=== PATIENT | male | born 1940 | race Caucasian/White ===

== ENCOUNTER 2017-09-20 11:59 | Inpatient (IN) | payer OTHER ==
[~2017-09-20] VITALS: Ht 157.5 cm; Wt 65.7 kg
[~2017-09-20 11:59] MED LIST: CEPH500 PO; EPIN.3I IM; LISI10; LISI20 PO; METPRE4DP PO; OXYACE5T PO; PRAV20 PO
[2017-09-20 12:26] LABS: BASOPHILS ABSOLUTE AUTO 0.03 K/mm3 (0.00-0.23); BASOPHILS PERCENT AUTO 0 % (0-2); EOSINOPHILS ABSOLUTE AUTO 0.12 K/mm3 (0.00-0.68); EOSINOPHILS PERCENT AUTO 2 % (0-6); Hemoglobin 12.7 g/dL (13.5-17.5); IMMATURE GRAN ABSOLUTE AUTO 0.03 K/mm3 (0.00-0.10); IMMATURE GRAN PERCENT AUTO 0 % (0-1); LYMPHOCYTES ABSOLUTE AUTO 2.32 K/mm3 (0.84-5.20); LYMPHOCYTES PERCENT AUTO 29 % (21-46); MONOCYTES ABSOLUTE AUTO 0.66 K/mm3 (0.16-1.47); MONOCYTES PERCENT AUTO 8 % (4-13); Mean Corpuscular HGB 30.8 pg (26.0-34.0); Mean Corpuscular HGB Conc 32.6 g/dL (31.5-36.5); Mean Corpuscular Volume 95 fL (80-100); Mean Platelet Volume 9.1 fL (9.1-12.4); NEUTROPHILS ABSOLUTE AUTO 4.95 K/mm3 (1.96-9.15); NEUTROPHILS PERCENT AUTO 61 % (41-73); Platelet Count 193 K/mm3 (150-400); RDW Coefficient Variation 12.3 % (11.7-14.2); RDW Standard Deviation 42.9 fL (35.1-46.3); Red Blood Cell Count 4.12 M/mm3 (4.30-5.90); White Blood Cell Count 8.11 K/mm3 (4.00-11.30)
[2017-09-20] MEDS ORDERED: Red Yeast Rice600 MG PO (12:30)
[2017-09-20] MEDS ORDERED: ASPI81CH PO (12:30)
[2017-09-20 12:47] LABS: Alanine Aminotransfer (ALT/SGP 27 U/L (12-78); Albumin, Blood 3.5 g/dL (3.4-5.0); Albumin/Globulin Ratio 1.1 (0.8-1.8); Alk Phos 88 U/L (50-136); Anion Gap 6 mmol/L (6-16); Aspartate Aminotrans (AST/SGOT 31 U/L (12-37); Bilirubin, Total 0.4 mg/dL (0.1-1.0); Blood Urea Nitrogen 23 mg/dL (8-24); Bun/Creatinine Ratio 22.1 (12.0-20.0); CO2, Blood 27 mmol/L (21-32); Calcium, Blood 8.4 mg/dL (8.5-10.1); Chloride, Blood 108 mmol/L (98-108); Creatinine, Blood 1.04 mg/dL (0.60-1.20); Globulin, Blood 3.3 g/dL (2.2-4.0); Glomerular Filtration Rate >60 (60-); Glucose, Blood 91 mg/dL (70-99); Sodium, Blood 141 mmol/L (136-145); Total Protein, Blood 6.8 g/dL (6.4-8.2)
[2017-09-20 12:58] LABS: Prothrombin Time Results 10.4 Sec (9.7-11.5)
[2017-09-20] MEDS ORDERED: FLAX PO (15:54)
[2017-09-20] MEDS ORDERED: Co Q-10100 MG PO (15:54)
[2017-09-20] MEDS ORDERED: Men's Multi-Vi1 EACH PO (15:56)
[2017-09-21 06:36] LABS: CHOL/HDL RATIO 2.7; Cholesterol 142 mg/dL (50-200); HDL Cholesterol 53 mg/dL (>39); LDL/HDL RATIO 1.5; Low Density Lipoprotein Chol 79 mg/dL (0-110); Triglycerides 51 mg/dL (30-160); Very Low Density Lipoprot Chol 10 mg/dL (6-32)
[2017-09-22] MEDS ORDERED: CLOP75 PO (12:11)
[2017-09-22] MEDS ORDERED: Isosorbide Mono30 MG PO (12:14)
[2017-09-22] MEDS ORDERED: NITR.4SL SL (12:18)
[2017-09-22] MEDS ORDERED: PRAV20 PO (12:19)
== END 2017-09-22 14:59 | disposition home or self-care (01) | DRG 281 ==
LOC: ER 11:59 → MEDS 12:00 → ER 14:26 → PCU 09-21 02:40
PROVIDERS: Emergency Medicine; Family Medicine
PROC: 4A023N7 Measurement of Cardiac Sampling and Pressure, Left Heart, Percutaneous Approach (ICD-10-PCS; principal; 2017-09-21)
PROC: B2111ZZ Fluoroscopy of Multiple Coronary Arteries using Low Osmolar Contrast (ICD-10-PCS; 2017-09-21)
PROC: 3E0234Z Introduction of Serum, Toxoid and Vaccine into Muscle, Percutaneous Approach (ICD-10-PCS; 2017-09-21)
DX: I21.4 Non-ST elevation (NSTEMI) myocardial infarction (principal); I25.810 Atherosclerosis of coronary artery bypass graft(s) without angina pectoris; I25.82 Chronic total occlusion of coronary artery; I25.10 Atherosclerotic heart disease of native coronary artery without angina pectoris; Z23 Encounter for immunization
CPT/HCPCS: 36415; 71046; 80053; 80061; 83880; 84443; 84484; 85025; 85347; 85610; 85730; 93005; 93010; 93306; 93459; 96360; 99152; 99153; 99285; C1769; C1894; C9113; J1644; J1650; J2250; J3010; J7030; J7040; Q9967

== ENCOUNTER 2018-12-28 05:40 | Day surgery (SDC) | payer OTHER ==
[~2018-12-28] VITALS: Ht 167.6 cm; Wt 64.0 kg
[~2018-12-28 05:40] MED LIST changes: +ASPI81CH PO; +CLOP75 PO; +Co Q-10100 MG PO; +FLAX PO; +Isosorbide Mono30 MG PO; +Men's Multi-Vi1 EACH PO; +NITR.4SL SL; +PANT40 PO; +Red Yeast Rice600 MG PO
[2018-12-28] MEDS ORDERED: Efudex40 GM TOP (06:32)
--- NOTE | 2018-12-28 16:59 | NUR ---
SHIFT SUMMARY S/P PACEMAKER PLACEMENT BY DR. BIRD TODAY. POST OP VSS. PT REPORTS MINIMAL PAIN WITH MOVEMENT AND MEDICATED WITH TYLENOL 1X. DRESSING REMAINS CDI. L ARM RESTRICTIONS DISCUSSED WITH PT AND SLING APPLIED. PT HAS BEEN OOB INDEPENDENTLY UP IN ROOM. [place] REG DIET. VOIDING. USES CALL LIGHT APPROPRIATELY. WILL CONT TO MONITOR.
--- NOTE | 2018-12-28 18:27 | NUR ---
DR. BIRD IN TO ROUND ON PT. NOTIFIED THAT ASPIRIN AND PLAVIX WERE GIVEN. DR REPORTS TO MONITOR FOR BLEEDING. NO NEW ORDERS. DR. BIRD WILL ROUND IN THE MORNING.
--- NOTE | 2018-12-29 15:31 | NUR ---
DC'D REMOVED TELE UNIT. DC'D IV, CATHETER INTACT. REVIEWED DC INSTRUCTIONS W/PT; VERBALIZED UNDERSTANDING. PT LEFT UNIT BY AMBULATION ACCOMPANIED BY SPOUSE W/POSSESSIONS AND DC INSTRUCTIONS IN HAND.
== END 2018-12-29 13:10 | disposition home or self-care (01) ==
LOC: MHTC 05:40 → SURS 09:28 → MHTC 10:43 → SURS 10:43 → MHTC 12-29 13:10 → SURS 12-29 13:10
DX: I49.5 Sick sinus syndrome (principal); I48.4 Atypical atrial flutter; I25.10 Atherosclerotic heart disease of native coronary artery without angina pectoris; E78.5 Hyperlipidemia, unspecified; Z95.1 Presence of aortocoronary bypass graft; Z79.899 Other long term (current) drug therapy; Z79.82 Long term (current) use of aspirin; Z79.01 Long term (current) use of anticoagulants; Z87.891 Personal history of nicotine dependence
CPT/HCPCS: 33208; 71045; 71046; 96365; 96366; 99152; 99153; A9270; C1785; C1898; G0378; J0360; J0690; J1644; J2250; J3010; J7030; J7040; Q9967

== ENCOUNTER → 2019-12-05 | Outpatient (CLI) | payer OTHER ==
[~2019-12-05] MED LIST changes: +Efudex40 GM TOP
== END | disposition home or self-care (01) ==
LOC: LAB SHORT 08:57 → PLD 08:57
DX: D23.4 Other benign neoplasm of skin of scalp and neck (principal); D04.39 Carcinoma in situ of skin of other parts of face
CPT/HCPCS: 88305

== ENCOUNTER → 2020-06-05 | Outpatient (CLI) | payer OTHER | END | disposition home or self-care (01) | LOC: PLD 15:10 → LAB SHORT 15:10 | DX: D48.5 Neoplasm of uncertain behavior of skin (principal) | CPT/HCPCS: 88305 ==

== ENCOUNTER → 2021-03-26 | Outpatient (CLI) | payer OTHER | LOC: LAB 12:17 → LAB SHORT 12:17 | DX: D48.5 Neoplasm of uncertain behavior of skin (principal); L82.1 Other seborrheic keratosis | CPT/HCPCS: 88305 ==

== ENCOUNTER 2021-09-07 10:09 | Emergency (ER) | payer OTHER ==
[~2021-09-07] VITALS: Ht 160 cm; Wt 61.2 kg
[2021-09-07 10:33] LABS: BASOPHILS ABSOLUTE AUTO 0.02 K/mm3 (0.00-0.23); BASOPHILS PERCENT AUTO 0 % (0-2); EOSINOPHILS ABSOLUTE AUTO 0.09 K/mm3 (0.00-0.68); EOSINOPHILS PERCENT AUTO 1 % (0-6); Hematocrit 40.5 % (37.0-53.0); Hemoglobin 13.1 g/dL (13.5-17.5); IMMATURE GRAN ABSOLUTE AUTO 0.03 K/mm3 (0.00-0.10); IMMATURE GRAN PERCENT AUTO 0 % (0-1); LYMPHOCYTES ABSOLUTE AUTO 1.62 K/mm3 (0.84-5.20); LYMPHOCYTES PERCENT AUTO 21 % (21-46); MONOCYTES ABSOLUTE AUTO 0.68 K/mm3 (0.16-1.47); MONOCYTES PERCENT AUTO 9 % (4-13); Mean Corpuscular HGB 30.3 pg (26.0-34.0); Mean Corpuscular HGB Conc 32.3 g/dL (31.5-36.5); Mean Corpuscular Volume 94 fL (80-100); Mean Platelet Volume 9.4 fL (9.1-12.4); NEUTROPHILS ABSOLUTE AUTO 5.14 K/mm3 (1.96-9.15); NEUTROPHILS PERCENT AUTO 68 % (41-73); Platelet Count 177 K/mm3 (150-400); RDW Coefficient Variation 13.4 % (11.7-14.2); RDW Standard Deviation 46.3 fL (35.1-46.3); Red Blood Cell Count 4.33 M/mm3 (4.30-5.90); White Blood Cell Count 7.58 K/mm3 (4.00-11.30)
[2021-09-07] MEDS ORDERED: ATEN25 PO (10:34)
[2021-09-07] MEDS ORDERED: SUCR1 PO (10:34)
[2021-09-07] MEDS ORDERED: ELIQUIS5 M2 PO (10:36)
[2021-09-07] MEDS ORDERED: [UNRECOGNIZED DRUG - OTHER] (10:38)
[2021-09-07] MEDS ORDERED: TAMS.4ER PO (10:39)
[2021-09-07] MEDS ORDERED: ZINC15 (10:39)
[2021-09-07] MEDS ORDERED: Vitamin D1000 UNI1 (10:39)
[2021-09-07 10:59] LABS: Albumin, Blood 3.4 g/dL (3.4-5.0); Bilirubin, Total 0.6 mg/dL (0.1-1.0); Bun/Creatinine Ratio 18.6 (12.0-20.0); Calcium, Blood 8.7 mg/dL (8.5-10.1); Creatinine, Blood 1.18 mg/dL (0.60-1.20); Globulin, Blood 3.3 g/dL (2.2-4.0); Potassium, Blood 3.3 mmol/L (3.5-5.5); Thyroid Stimulating Hormone 4.96 uIU/mL (0.360-4.800); Total Protein, Blood 6.7 g/dL (6.4-8.2)
== END 2021-09-07 14:16 | disposition home or self-care (01) ==
LOC: ER 10:09
PROVIDERS: Emergency Medicine
DX: I48.92 Unspecified atrial flutter (principal); I48.91 Unspecified atrial fibrillation
CPT/HCPCS: 36415; 71045; 80053; 83735; 84443; 84484; 85025; 93005; 93010; 99285-25

== ENCOUNTER 2022-01-22 05:30 | Inpatient (IN) | payer OTHER ==
[~2022-01-22] VITALS: Ht 167.6 cm; Wt 55.9 kg
[~2022-01-22 05:30] MED LIST changes: +ATEN25 PO; +ELIQUIS5 M2 PO; +SUCR1 PO; +TAMS.4ER PO; +Vitamin D1000 UNI1; +ZINC15; +[UNRECOGNIZED DRUG - OTHER]
[2022-01-22 05:48] LABS: BASOPHILS ABSOLUTE AUTO 0.03 K/mm3 (0.00-0.23); BASOPHILS PERCENT AUTO 0 % (0-2); EOSINOPHILS ABSOLUTE AUTO 0.16 K/mm3 (0.00-0.68); EOSINOPHILS PERCENT AUTO 2 % (0-6); Hematocrit 40.8 % (37.0-53.0); Hemoglobin 13.7 g/dL (13.5-17.5); IMMATURE GRAN ABSOLUTE AUTO 0.02 K/mm3 (0.00-0.10); IMMATURE GRAN PERCENT AUTO 0 % (0-1); LYMPHOCYTES ABSOLUTE AUTO 3.22 K/mm3 (0.84-5.20); LYMPHOCYTES PERCENT AUTO 43 % (21-46); MONOCYTES ABSOLUTE AUTO 0.51 K/mm3 (0.16-1.47); MONOCYTES PERCENT AUTO 7 % (4-13); Mean Corpuscular HGB 30.6 pg (26.0-34.0); Mean Corpuscular HGB Conc 33.6 g/dL (31.5-36.5); Mean Corpuscular Volume 91 fL (80-100); Mean Platelet Volume 9.2 fL (9.1-12.4); NEUTROPHILS ABSOLUTE AUTO 3.62 K/mm3 (1.96-9.15); NEUTROPHILS PERCENT AUTO 48 % (41-73); Platelet Count 169 K/mm3 (150-400); RDW Coefficient Variation 12.5 % (11.7-14.2); RDW Standard Deviation 42.1 fL (35.1-46.3); Red Blood Cell Count 4.48 M/mm3 (4.30-5.90); White Blood Cell Count 7.56 K/mm3 (4.00-11.30)
[2022-01-22] MEDS ORDERED: ELIQUIS5 M2 PO (06:06)
[2022-01-22] MEDS ORDERED: FURO20 PO (06:06)
[2022-01-22] MEDS ORDERED: METOPROLOL SUCC25 MG PO (06:07)
[2022-01-22 06:15] LABS: Alanine Aminotransfer (ALT/SGP 23 U/L (12-78); Albumin, Blood 3.6 g/dL (3.4-5.0); Albumin/Globulin Ratio 1.1 (0.8-1.8); Alk Phos 87 U/L (50-136); Anion Gap 9 mmol/L (6-16); Aspartate Aminotrans (AST/SGOT 27 U/L (12-37); Bilirubin, Total 0.5 mg/dL (0.1-1.0); Blood Urea Nitrogen 24 mg/dL (8-24); Bun/Creatinine Ratio 23.1 (12.0-20.0); CO2, Blood 23 mmol/L (21-32); Calcium, Blood 9.3 mg/dL (8.5-10.1); Chloride, Blood 114 mmol/L (98-108); Creatinine, Blood 1.04 mg/dL (0.60-1.20); Ethanol (Alcohol), Blood, Med <3 mg/dL; Globulin, Blood 3.3 g/dL (2.2-4.0); Glomerular Filtration Rate 72 (60-); Glucose, Blood 118 mg/dL (70-99); Potassium, Blood 3.5 mmol/L (3.5-5.5); Sodium, Blood 146 mmol/L (136-145); Total Protein, Blood 6.9 g/dL (6.4-8.2)
[2022-01-22 07:46] LABS: Magnesium, Blood 2.4 mg/dL (1.6-2.4); Thyroid Stimulating Hormone 5.77 uIU/mL (0.360-4.800)
[2022-01-22 08:51] LABS: Free Thyroxine 0.88 ng/dL (0.70-1.60); Triiodothyronine, Free 2.29 pg/mL (2.18-3.98)
[2022-01-22 09:01] LABS: Source, Urine Clean Catch
[2022-01-22 09:03] LABS: U Amphetamine Screen Not Detected; U Barbituate Screen Not Detected; U Benzodiazapine Screen Not Detected; U Buprenorphine Screen Not Detected; U Cannabinoids Screen Not Detected; U Cocaine Screen Not Detected; U Methadone Screen Not Detected; U Methamphetamine Screen Not Detected; U Opiates Screen Not Detected; U Oxycodone Screen Not Detected; U Phencyclidine Screen Not Detected; U Propoxyphene Screen Not Detected
[2022-01-22 09:08] LABS: Appearance, Urine Clear (Clear); Bilirubin, Urine Neg (Neg); Blood, Urine 1+ (Neg); Color, Urine Yellow (P-Yellow); Glucose Qualitative, Urine Neg (Neg); Ketones, Urine Neg (Neg); Leukocyte Esterase, Urine Neg (Neg); Nitrite, Urine Neg (Neg); Protein, Urine 2+ (Neg); Urobilinogen, Urine NORM (Normal); pH, Urine 6.5 (5.0-8.0)
[2022-01-22 09:29] LABS: Bacteria Rare /hpf; Squamous Epithelial Cells Not Seen /hpf (Few); White Blood Cells, Urine 0-2 /hpf (0-5)
--- NOTE | 2022-01-22 12:50 | NUR ---
PT ARRIVED TO UNIT FROM ER. PLAN TO ASSESS PT. CALL LIGHT W/IN REACH. NPO, WAITING FOR SPEECH THERAPY. PT A&OX 4, SPEECH SLIGHT SLUR/QUIET.
--- NOTE | 2022-01-22 14:58 | NUR ---
HOSPITALIST NOTIFIED OF CL TROP.
--- NOTE | 2022-01-22 16:55 | NUR ---
SHIFT SUMMARY PT A&OX 2, MOOD UP AND DOWN T/O SHIFT. PT BECAME COMBATIVE W/ ROLL CHANGE. PT C/O BACK PAIN MEDICATED PER EMAR AND REPOSITIONING. TOOK PILLS CRUSHED W/ PUDDING. INCONT. VOID, PURE WICK IN PLACE. CALL LIGHT W/IN REACH. ENJOYS READING BOOK AND WATCHING NEWS.
--- NOTE | 2022-01-22 17:17 | NUR ---
SHIFT SUMMARY PT HAS BEEN RESTING COMFORTABLY IN BED SINCE ARRIVAL TO UNIT @ APPROX. 1300. SPEECH EVAL COMPLETE-MECH SOFT AND PILLS WHOLE IN APPLESAUCE. PHYSICAL THERAPY WORKED W/ PT-1X W/ GB. CHEST XRAY COMPLETE-PENDING RESULTS. CRITICAL HIGH TROP CALLED INTO HOSPITALIST. HEPARIN CURRENTLY INFUSING @ 15 U/KG/HR, PHARM MANAGING. PT UTILIZING URINAL, CALLS APPROPRIATLY. CALL LIGHT W/IN REACH.
--- NOTE | 2022-01-23 04:37 | NUR ---
SHIFT SUMMARY NO ACUTE CHANGES OVERNIGHT. PT ON HEPARIN DRIP, DOSAGE CHANGED FROM 15 U/KG/HR TO 16U/KG/HR. PT REMAINED AFIB OVERNIGHT. HR ELEVATED WHEN HE GOT UP IN THE BATHROOM AT 140. DENIES CHEST PAIN AND SOB. NEW IV PLACED ON RIGHT FOREARM, 22G. L ARM STILL FLUSHING PT C/O OF THAT IT FEELS IRRITATED. WATER SIPS AND ICE CHIPS. AOX3-4. USE CALL LIGHT APPROPRIATELY. NEURO WNL, PT STILL HAS SLURRED SPEECH. ENGINE WIPER EQUAL, BLE AND BUE STRENGTH EQUAL AND STRONG. GETS WOBBLY WHEN HE GETS UP. 1 SBA WITH GB. VOIDING IN THE BATHROOM. CALL LIGHT WITHIN REACH. WILL CONTINUE TO MONITOR AND WILL PROVIDE REPORT TO ONCOMING NURSE.
[2022-01-23 06:05] LABS: Bun/Creatinine Ratio 21.6 (12.0-20.0); Calcium, Blood 8.5 mg/dL (8.5-10.1); Creatinine, Blood 0.83 mg/dL (0.60-1.20); Potassium, Blood 3.6 mmol/L (3.5-5.5)
--- NOTE | 2022-01-23 08:00 | NUR ---
pt laying in bed watching tv, a/ox3, pleasant and cooperative with care, follows commands well, denies pain, lungs are clear t/o, currently on r/a, resp even and unlabored, no cough noted, hrirr, tele in place running afib per monitor will also pace if below 60, iv site is clear and patent, infusing heperin gtt as ordered, btx4, abd flat soft nontender, voids without diff, skin c/w/d, maew, neva, call light in reach.
[2022-01-23 09:12] LABS: Albumin, Blood 3.5 g/dL (3.4-5.0); Bilirubin, Total 1.1 mg/dL (0.1-1.0); Bun/Creatinine Ratio 21.5 (12.0-20.0); Creatinine, Blood 0.89 mg/dL (0.60-1.20); Globulin, Blood 3.5 g/dL (2.2-4.0); Potassium, Blood 3.8 mmol/L (3.5-5.5)
--- NOTE | 2022-01-23 13:37 | NUR ---
Pt resting in bed upon arrival and is A&OX3/4. Pt's spouse Norma at bedside. Pt and spouse report have 40 acres of property with children living on the same property. Spouse reports giving one of the children their house and Pt and spouse living in [address] on the property. Spouse reports they have no need of the home right now. Spouse reports family is supportive of any needs Pt may have in the future. Reviewed plan of care. Engaged in therapeutic discussion regarding code status wishes. Educated on life sustaining treatments including risk factors and implications of CPR. Offered active listening and answered questions. Pt reports wishes are for DNR and no intubation. Discussed other options such as defibrillation and medications. Pt reports no defibrillation and is undecided about medications at this time. Pt reports for now no medications as part of resuscitation efforts. Assisted with completing POLST per Pt request. Pt signs POLST. No other concerns reported at this time. Spoke with Dr Galarza and discussed case. Placed DNR order for Pt in [facility] per V/O from Dr Galarza. Palliative Care will obtain copy of POLST upon MD signature and deliver to medical records.
--- NOTE | 2022-01-23 18:23 | NUR ---
pt was changed to DNR this am, in to visit, pallative care spoke with both of them, pt had no acute changes this shift, call light in reach.
[2022-01-24 05:15] LABS: BASOPHILS ABSOLUTE AUTO 0.02 K/mm3 (0.00-0.23); BASOPHILS PERCENT AUTO 0 % (0-2); EOSINOPHILS ABSOLUTE AUTO 0.09 K/mm3 (0.00-0.68); EOSINOPHILS PERCENT AUTO 1 % (0-6); Hematocrit 47.1 % (37.0-53.0); Hemoglobin 15.8 g/dL (13.5-17.5); IMMATURE GRAN ABSOLUTE AUTO 0.05 K/mm3 (0.00-0.10); IMMATURE GRAN PERCENT AUTO 1 % (0-1); LYMPHOCYTES ABSOLUTE AUTO 1.87 K/mm3 (0.84-5.20); LYMPHOCYTES PERCENT AUTO 20 % (21-46); MONOCYTES PERCENT AUTO 8 % (4-13); Mean Corpuscular HGB 29.7 pg (26.0-34.0); Mean Corpuscular HGB Conc 33.5 g/dL (31.5-36.5); Mean Corpuscular Volume 89 fL (80-100); Mean Platelet Volume 9.7 fL (9.1-12.4); NEUTROPHILS ABSOLUTE AUTO 6.65 K/mm3 (1.96-9.15); NEUTROPHILS PERCENT AUTO 71 % (41-73); Platelet Count 179 K/mm3 (150-400); RDW Coefficient Variation 12.2 % (11.7-14.2); RDW Standard Deviation 39.9 fL (35.1-46.3); Red Blood Cell Count 5.32 M/mm3 (4.30-5.90); White Blood Cell Count 9.38 K/mm3 (4.00-11.30)
[2022-01-24 06:05] LABS: Bun/Creatinine Ratio 26.5 (12.0-20.0); Calcium, Blood 8.8 mg/dL (8.5-10.1); Creatinine, Blood 1.02 mg/dL (0.60-1.20); Potassium, Blood 3.8 mmol/L (3.5-5.5)
--- NOTE | 2022-01-24 06:20 | NUR ---
PT IS ALERT AND ORIENTED, HAS MOMENTS OF CONFUSION, IS ABLE TO AMBULATE TO BR WITH MIN ASSISTANCE AND CALLS APPROPRIATELY. HEPARIN DRIP WAS DECREASED THIS SHIFT TO 15.7 PER PHARMACY. PT WAS TACHARDIC THROUGHOUT THE NIGHT 130s TO 140s, ORDER FOR IV METOPROLOL OBTAINED. PT USES CPAP TO SLEEP, IS ABLE TO SLEEP 4 HOURS THIS NIGHT. WILL CONTINUE TO MONITOR AND GIVE HANDOFF REPORT TO ONCOMING RN.
[2022-01-24] MEDS ORDERED: Isosorbide Mono30 MG PO (12:09)
[2022-01-24] MEDS ORDERED: CLOP75 PO (12:10)
[2022-01-24] MEDS ORDERED: FAMO20 PO (12:11)
--- NOTE | 2022-01-24 12:34 | NUR ---
NEW POLST FORM Completed & fully signed POLST obtained from pt's RN. Discussed giving pt/fam original, copy to chart and RN will also send copy to medical records for scanning into EMR.
--- NOTE | 2022-01-24 15:51 | NUR ---
PT RESTING QUIETLY, WATCHING TV, AT START OF SHIFT. BED ALARM ON FOR SAFETY. PLEASANT AND CO-OP BUT IMPULSIVE, GETTING UP AND DOWN. HR ELEVATED, PER TELE MX AT START OF SHIFT. DR DOYLE AWARE AND ORDERED ADDITIONAL MEDICATIONS. HR DECREASED AND STABILIZED; PER TELE MX AND CONTINUOUS MONITOR IN . HEPARIN DRIP D/C'D PER ORDERS, NEW MEDS STARTED. DR DOYLE TO TO DISCUSS PLAN OF CARE WITH PT AND FAMILY. D/C ORDERS LATER PLACED. D/C MEDS FAXED TO [facility], PER REQUEST. D/C INSTRUCTIONS DISCUSSED WITH PT AND . DENIED FURTHER NEEDS. PT ASSISTED OUT TO 'S CAR VIA W/C.
== END 2022-01-24 13:25 | disposition home health service (06) | DRG 64 ==
LOC: ER 05:30 → MEDS 05:31
PROVIDERS: Internal Medicine; Nurse Practitioner Acute Care; Student in an Organized Health Care Education/Training Program; ADMIT Internal Medicine
DX: I63.9 Cerebral infarction, unspecified (principal); I21.4 Non-ST elevation (NSTEMI) myocardial infarction; G45.9 Transient cerebral ischemic attack, unspecified; R64 Cachexia; I50.32 Chronic diastolic (congestive) heart failure; I48.20 Chronic atrial fibrillation, unspecified; R29.701 NIHSS score 1; Z66 Do not resuscitate; R47.1 Dysarthria and anarthria; E78.5 Hyperlipidemia, unspecified; I25.10 Atherosclerotic heart disease of native coronary artery without angina pectoris; G47.33 Obstructive sleep apnea (adult) (pediatric); I49.5 Sick sinus syndrome; Z95.0 Presence of cardiac pacemaker; Z95.1 Presence of aortocoronary bypass graft; Z98.890 Other specified postprocedural states; Z91.19 Patient's noncompliance with other medical treatment and regimen; Z91.038 Other insect allergy status; Z91.030 Bee allergy status; Z79.02 Long term (current) use of antithrombotics/antiplatelets; Z79.899 Other long term (current) drug therapy
CPT/HCPCS: 36415; 70450; 71045; 80048; 80053; 81001; 83735; 84146; 84439; 84443; 84481; 84484; 85025; 85730; 92526; 92610; 93005; 93010; 93306; 93880; 94660; 94762; 96365; 97116; 97161; 99285-25; A9270; G0480; J1644; J1953; J7030

== ENCOUNTER 2022-02-26 09:13 | Observation (INO) | payer OTHER ==
[~2022-02-26] VITALS: Ht 167.6 cm; Wt 55.6 kg
[~2022-02-26 09:13] MED LIST changes: +FAMO20 PO; +FURO20 PO; +METOPROLOL SUCC25 MG PO
[2022-02-26] MEDS ORDERED: FLAX PO (09:41)
[2022-02-26] MEDS ORDERED: DOC250 (09:41)
[2022-02-26 09:42] LABS: BASOPHILS ABSOLUTE AUTO 0.03 K/mm3 (0.00-0.23); BASOPHILS PERCENT AUTO 0 % (0-2); EOSINOPHILS ABSOLUTE AUTO 0.02 K/mm3 (0.00-0.68); EOSINOPHILS PERCENT AUTO 0 % (0-6); Hemoglobin 12.4 g/dL (13.5-17.5); IMMATURE GRAN ABSOLUTE AUTO 0.05 K/mm3 (0.00-0.10); IMMATURE GRAN PERCENT AUTO 0 % (0-1); LYMPHOCYTES ABSOLUTE AUTO 1.97 K/mm3 (0.84-5.20); LYMPHOCYTES PERCENT AUTO 17 % (21-46); MONOCYTES ABSOLUTE AUTO 0.67 K/mm3 (0.16-1.47); MONOCYTES PERCENT AUTO 6 % (4-13); Mean Corpuscular HGB 30.8 pg (26.0-34.0); Mean Corpuscular HGB Conc 33.5 g/dL (31.5-36.5); Mean Corpuscular Volume 92 fL (80-100); Mean Platelet Volume 9.4 fL (9.1-12.4); NEUTROPHILS ABSOLUTE AUTO 8.55 K/mm3 (1.96-9.15); NEUTROPHILS PERCENT AUTO 76 % (41-73); Platelet Count 188 K/mm3 (150-400); RDW Coefficient Variation 13.3 % (11.7-14.2); RDW Standard Deviation 45.2 fL (35.1-46.3); Red Blood Cell Count 4.02 M/mm3 (4.30-5.90); White Blood Cell Count 11.29 K/mm3 (4.00-11.30)
[2022-02-26] MEDS ORDERED: ZINC15 PO (09:42)
[2022-02-26] MEDS ORDERED: COQ-10100 MG PO (09:42)
[2022-02-26] MEDS ORDERED: VITAMIN D325 MC3 PO (09:42)
[2022-02-26] MEDS ORDERED: TAMS.4ER PO (09:43)
[2022-02-26] MEDS ORDERED: NITR.4SL SL (09:44)
[2022-02-26] MEDS ORDERED: EFUDEX40 GM TOP (09:45)
[2022-02-26 09:53] LABS: Albumin, Blood 3.5 g/dL (3.4-5.0); Albumin/Globulin Ratio 1.2 (0.8-1.8); Bilirubin, Total 0.5 mg/dL (0.1-1.0); Bun/Creatinine Ratio 18.9 (12.0-20.0); Calcium, Blood 8.5 mg/dL (8.5-10.1); Creatinine, Blood 1.11 mg/dL (0.60-1.20); Magnesium, Blood 2.4 mg/dL (1.6-2.4); Potassium, Blood 3.6 mmol/L (3.5-5.5); Prolactin 22.9 ng/mL (2.5-17.4); Total Protein, Blood 6.5 g/dL (6.4-8.2)
[2022-02-26 11:17] LABS: Influenza A, PCR NEGATIVE (NEGATIVE); Influenza B, PCR NEGATIVE (NEGATIVE); Resp Syncytial Virus, PCR NEGATIVE (NEGATIVE); SARS-Cov-2 (COVID-19) PCR, MMC NEGATIVE (NEGATIVE)
[2022-02-26] MEDS ORDERED: CLOBETASOL EMOL15 G1 TOP (15:59)
[2022-02-26] MEDS ORDERED: TRIA15CR3 TOP (16:00)
[2022-02-26] MEDS ORDERED: FISH OIL 1,2001 EAC4 PO (16:04)
--- NOTE | 2022-02-26 18:17 | NUR ---
SHIFT SUMMARY- PT ADMITTED THROUGH THE ED FOR POSSIBLE SEIZURE ACTIVITY. AFTER THE PT ATE DINNER IT WAS NOTICED THAT HE SEEMS TO HAVVE SOME DIFFICULTY SWALLOWING WHEN USING A STRAW (COUGHING NOTED), HE STATES HE TAKES HIS MEDICATIONS IN APPLESAUCE AND HE MAY NEED A SPEECH THERAPY SWALLOW EVAL. FOR THIS TIME WE ARE KEEPING HIM WITH NO STRAWS AND MEDS WHOLE IN APPLESAUCE, HE SEEMS TO BE DOING WELL WITH THOSE MODIFICATIONS AT THIS TIME. PT CURRENTLY SITTING UP IN BED, CALL LIGHT IN REACH NO S&S OF DISTRESS NOTED AT THIS TIME WILL CTM AND PASS ON TO NIGHT RN IN BEDSIDE REPORT.
--- NOTE | 2022-02-27 07:41 | NUR ---
SECURITY CLERK SUMMARY PT RESTING THROUGHOUT THE NIGHT. REPORTS FEELING THAT TONGUE IS SWOLLEN AND BRUISED. SOME SLURRED SPEECH. NO SEIZURE ACTIVITY. UP WITH ONE PERSON ASSIST DUE TO BEING UNSTEADY. NO ACUTE EVENTS.
[2022-02-27] MEDS ORDERED: LEVE500 PO (11:36)
--- NOTE | 2022-02-27 14:31 | NUR ---
No acute changes to patient status. RIVET FLUNKY evaluated patient, recommending mechanical soft diet & no straw. PT worked with pt, recommending patient discharge home, with outpt therapy. Patient/ decline outpt therapy, stated they [place] from town to travel for therapy. Provided discharge to patient and .
== END 2022-02-27 12:04 | disposition home or self-care (01) ==
LOC: ER 09:13 → MEDS 09:14
PROVIDERS: Student in an Organized Health Care Education/Training Program; ADMIT Internal Medicine
DX: R56.9 Unspecified convulsions (principal); I25.10 Atherosclerotic heart disease of native coronary artery without angina pectoris; I25.2 Old myocardial infarction; K21.9 Gastro-esophageal reflux disease without esophagitis; E78.5 Hyperlipidemia, unspecified; I50.32 Chronic diastolic (congestive) heart failure; I48.0 Paroxysmal atrial fibrillation; Z91.030 Bee allergy status; Z91.038 Other insect allergy status; Z95.1 Presence of aortocoronary bypass graft; Z95.0 Presence of cardiac pacemaker; Z87.891 Personal history of nicotine dependence; Z20.822 Contact with and (suspected) exposure to COVID-19; Z79.01 Long term (current) use of anticoagulants; Z86.73 Personal history of transient ischemic attack (TIA), and cerebral infarction without residual deficits
CPT/HCPCS: 0241U; 36415; 70450; 71045; 80053; 82947; 83735; 84146; 84484; 85025; 92610; 93005; 93010; 96361; 96365; 96375; 97162; 97530; 99285-25; A9270; G0378; J1953; J2405; J7030

== ENCOUNTER → 2022-06-30 | Outpatient (CLI) | payer OTHER ==
[~2022-06-30] MED LIST changes: +CLOBETASOL EMOL15 G1 TOP; +COQ-10100 MG PO; +DOC250; +EFUDEX40 GM TOP; +FISH OIL 1,2001 EAC4 PO; +LEVE500 PO; +TRIA15CR3 TOP; +VITAMIN D325 MC3 PO; +ZINC15 PO
== END | disposition home or self-care (01) ==
LOC: LAB SHORT 10:49
DX: C44.219 Basal cell carcinoma of skin of left ear and external auricular canal (principal); L82.1 Other seborrheic keratosis
CPT/HCPCS: 88305